=== PATIENT | male | born 1995 | race African-American/Black ===

== ENCOUNTER 2017-03-22 04:47 | Emergency (ER) | payer SELFPAY ==
[~2017-03-22] VITALS: Ht 180.3 cm; Wt 74.8 kg
[2017-03-22] MEDS ORDERED: cefTRIAXone 1GM/50ML D5W 50 ML IV ONE (05:00)
[2017-03-22] MEDS ORDERED: TETANUS-DIPTH-ACEL PERTUSSIS 0.5ML SYRG IM ONE (05:00)
[2017-03-22 05:50] VITALS: BP 131/73
[2017-03-22] MEDS ORDERED: MORPHINE SULFATE 4 MG/ML SYRG IV ONE (06:30)
[2017-03-22] MEDS ORDERED: ONDANSETRON HCL 4 MG/2 ML VIAL IV ONE (06:30)
== END 2017-03-22 06:35 | disposition left against medical advice (07) ==
LOC: ER 04:47
DX: S51.812A Laceration without foreign body of left forearm, initial encounter (principal); Z53.21 Procedure and treatment not carried out due to patient leaving prior to being seen by health care provider; X99.1XXA Assault by knife, initial encounter; Y93.89 Activity, other specified; Y92.89 Other specified places as the place of occurrence of the external cause; Y99.8 Other external cause status
CPT/HCPCS: 73090; 90471; 90715; 96365; 99281; J0696; J2405

== ENCOUNTER 2017-03-22 10:48 | Emergency (ER) | payer SELFPAY ==
[~2017-03-22] VITALS: Ht 180.3 cm; Wt 74.8 kg
[2017-03-22 12:00] VITALS: BP 138/93
[2017-03-22] MEDS ORDERED: LIDOCAINE 1% HCL (LOCAL ANESTH.) INJ 20ML MDV ONE (12:01)
[2017-03-22] MEDS ORDERED: HYDROcodone-ACET 10/325MG TAB PO ONE (12:15)
[2017-03-22] MEDS ORDERED: LIDOCAINE 1% HCL (LOCAL ANESTH.) INJ 20ML MDV IJ ONE (12:15)
== END 2017-03-22 13:40 | disposition home or self-care (01) ==
LOC: ER 10:48
DX: S52.602A Unspecified fracture of lower end of left ulna, initial encounter for closed fracture (principal); S51.812A Laceration without foreign body of left forearm, initial encounter; S61.412A Laceration without foreign body of left hand, initial encounter; S71.111A Laceration without foreign body, right thigh, initial encounter; Y08.89XA Assault by other specified means, initial encounter; Y93.89 Activity, other specified; Y92.89 Other specified places as the place of occurrence of the external cause; Y99.8 Other external cause status
CPT/HCPCS: 12035; 29125; 94761; 99284; J2001